=== PATIENT | male | born 1970 | race African-American/Black ===

== ENCOUNTER 2016-11-26 19:32 | Emergency (ER) | payer MEDICARE, MEDICAID ==
[~2016-11-26] VITALS: Ht 185.4 cm; Wt 66.2 kg
[2016-11-26] MEDS ORDERED: ONDANSETRON 4 MG TAB.RAPDIS ONE (23:56)
[2016-11-27] MEDS ORDERED: ONDANSETRON 4 MG TAB.RAPDIS PO ONE
[2016-11-27 00:24] VITALS: BP 122/74
== END 2016-11-27 00:25 | disposition home or self-care (01) ==
LOC: ER 19:40
DX: R11.2 Nausea with vomiting, unspecified (principal)
CPT/HCPCS: 99283; A4606; Q0162; Z7610

== ENCOUNTER 2017-05-12 15:32 | Emergency (ER) | payer MEDICARE, MEDICAID ==
[~2017-05-12] VITALS: Ht 185.4 cm; Wt 78.0 kg
--- NOTE | 2017-05-12 16:05 | NUR ---
PT BIB C/O CHILLS AND SHAKING X1 DAY. REPORTS SWEATING BUT SKIN APPEARS WARM NONDIAPHORETIC ON EXAM. RESP ENEN UNLABORED. DENIES COUGH, CONGESTION, N/V/D. AMBULATORY IWTH STEADY GAIT. NAD NOTED. PT APPEARS SOMEWHAT ANXIOUS AND STATES "THEY THOUGHT I WAS HAVING A HEART ATTACK". DENIES CP. IN ER BED 10.
[2017-05-12 18:16] LABS: APPEARANCE,URINE Clear (CLEAR); BILIRUBIN,URINE Negative (NEGATIVE); BLOOD, URINE Negative Ery/uL (NEGATIVE); COLOR,URINE Yellow (YELLOW); KETONES,URINE Negative (NEGATIVE); LEUKOCYTE ESTERASE ,URINE Negative (NEGATIVE); NITRITE, URINE Negative (NEGATIVE); PH,URINE 7.5 (5.0-8.0); PROTEIN,URINE Negative (NEGATIVE); UGLUCOSE Negative (NEGATIVE); UROBILINOGEN,URINE 0.2 EU/dL (0.2)
--- NOTE | 2017-05-12 18:29 | NUR ---
Patient discharged to home in stable condition. Written and verbal after care instructions given. Patient verbalizes understanding of instruction. AMBULATORY WITH STEADY GAIT.
[2017-05-12 18:30] VITALS: BP 140/89
== END 2017-05-12 18:32 | disposition home or self-care (01) ==
LOC: ER 15:33
DX: R68.83 Chills (without fever) (principal)
CPT/HCPCS: 81000-TC; A4606; Z7610

== ENCOUNTER 2017-12-20 16:19 | Emergency (ER) | payer MEDICARE, MEDICAID ==
[~2017-12-20] VITALS: Ht 182.9 cm; Wt 63.5 kg
[2017-12-20 16:53] VITALS: BP 152/97
== END 2017-12-20 17:34 | disposition home or self-care (01) ==
LOC: ER 16:21
DX: R13.10 Dysphagia, unspecified (principal); F10.10 Alcohol abuse, uncomplicated
CPT/HCPCS: A4606; Z7502; Z7610

== ENCOUNTER 2017-12-22 11:37 | Inpatient (IN) | payer MEDICARE, MEDICAID ==
[~2017-12-22] VITALS: Ht 185.4 cm; Wt 66.7 kg
--- NOTE | 2017-12-22 12:00 | NUR ---
PT EDI FROM HOME TO ER BED 16. PT C/O NEAR SYNCOPE, UNABLE TO EAT FOR DAYS. PT APPEARS ANXIOUS. GOWNED ANDPLACED ON MONITOR. STABLWE VITALS. AWAITING MD LOO.
--- NOTE | 2017-12-22 12:49 | NUR ---
DR ORTIZ AT BEDSIDE FOR EVAL.
[2017-12-22] MEDS ORDERED: IV NS 0.9% 1,000 ML BAG IV ONE (13:00)
[2017-12-22 13:14] LABS: BASOPHILS % (AUTO) 0.7 % (0.0-2.0); EOSINOPHILS % (AUTO) 0.5 % (0.0-6.0); HEMATOCRIT 49 % (39-51); HEMOGLOBIN 16.8 g/dL (13.5-17.5); LYMPHOCYTES # (AUTO) 0.7 /CMM (0.8-4.8); LYMPHOCYTES % (AUTO) 13.7 % (20.0-44.0); MEAN CORPUSCULAR HEMOGLOBIN 30 PG (26.0-33.0); MEAN CORPUSCULAR HGB CONC 34 g/dl (31.0-36.0); MEAN CORPUSCULAR VOLUME 86 fL (80-96); MONOCYTES # (AUTO) 0.5 /CMM (0.1-1.30); NEUTROPHILS # (AUTO) 4.2 /CMM (1.8-8.9); NEUTROPHILS % (AUTO) 76.1 % (43.0-81.0); PLATELET COUNT (AUTO) 200 /CMM (150-450); RDW COEFFICIENT OF VARIATION 11.7 (11.5-15.0); RED BLOOD CELL COUNT(AUTO) 5.67 MIL/uL (4.5-6.0); WHITE BLOOD COUNT (AUTO) 5.4 K/uL (4.3-11.0)
[2017-12-22 13:23] LABS: CALCIUM, SERUM 9.5 mg/dL (8.5-10.1); CARBON DIOXIDE 28 mmol/L (21-32); CHLORIDE 101 mmol/L (98-107); GLUCOSE 113 mg/dL (74-106); POTASSIUM 3.7 mmol/L (3.5-5.1); SODIUM SERUM 137 mmol/L (136-145); UREA NITROGEN, BLOOD 7 mg/dL (7-18)
[2017-12-22 13:32] LABS: TROPONIN I < 0.017 ng/mL (0.00-0.056)
[2017-12-22] MEDS ORDERED: ONDANSETRON HCL/PF 4 MG/2 ML VIAL IVP PRN (14:00)
[2017-12-22] MEDS ORDERED: MAGNESIUM HYDROXIDE 30 ML UDC PO PRN (14:00)
[2017-12-22] MEDS ORDERED: ZOLPIDEM TARTRATE 5 MG TABLET PO PRN (14:00)
[2017-12-22] MEDS ORDERED: MAG HYDROX/AL HYDROX/SIMETH 30 ML UDC PO PRN (14:00)
[2017-12-22] MEDS ORDERED: ACETAMINOPHEN 325 MG TABLET PO PRN (14:00)
[2017-12-22] MEDS ORDERED: Z GUARD REMEDY 2 OZ OINT TP PRN (14:00)
[2017-12-22] MEDS ORDERED: HYDROCODONE/APAP 5/325MG 1 EACH TABLET PO PRN (14:00)
--- NOTE | 2017-12-22 14:14 | NUR ---
REPORT GIVEN TO ELIZABETH. PT AWAITING TRANSFER TO FLOOR.
[2017-12-22] MEDS ORDERED: DIATR MEGLU/DIATRIZOATE SODIUM 120 ML BOTTLE (GASTROGRAPHIN) ONE ×2 (14:15→14:32)
[2017-12-22] MEDS ORDERED: BARIUM SULFATE 98% 135 ML SUSP.RECON PO ONE (14:37)
[2017-12-22 16:00] VITALS: BP 148/87
--- NOTE | 2017-12-22 16:00 | NUR ---
MS RN NOTES ADMITTED 47 YEAR OLD, MALE, ADMITTED FROM ER/RADIOLOGY S/P CT OF THE ABDOMEN. PATIENT ARRIVED VIA GURNEY, AWAKE, ALERT AND ORIENTED. ABLE TO MAKE NEEDS KNOWN AND FOLLOW SIMPLE INSTRUCTIONS. PATIENT ARRIVED AT UNIT 1530. PATIENT DENIES ANY PAIN OR DISCOMFORT, NO SOB OR CONGESTION NOTED. IV SITE ON LEFT AC, INTACT AND PATENT, NO SWELLING OR DISCOLORATION NOTED. PATIENT ORIENTED AND INTRODUCED TO UNIT, FLOOR, STAFF. WILL CONTINUE TO MONITOR
--- NOTE | 2017-12-22 16:00 | NUR ---
MS RN NOTES PATIENT NOTED WITH INVOLUNTARY FACIAL MOVEMENTS, FREQUENT BLINKING/WINKING, GENERALIZED TREMORS. BS OBTAINED WITH RESULT ON 113. PATIENT DENIES ANY PAIN OR DISCOMFORT. NO CHANGES IN LOC NOTED. WILL CONTINUE TO MONITOR
--- NOTE | 2017-12-22 17:00 | NUR ---
MS RN NOTES PATIENT SEEN AND EXAMINED BY SHARRON CAMP NP 2 GI CONSULT. WITH NEW ORDERS FOR NPO AND ST EVAL 2 DYSPHAGIA, NPO UNTIL EVALUATED BY ST. PATIENT MADE AWARE AND VERBALIZED UNDERSTANDING. ALSO WITH NEW ORDERS FOR IV HYDRATION OF NS AT 75CC/HR. ORDER NOTED AND CARRIED OUT. IV HYDRATION INITIATED AND DRAINING WELL. WILL CONTINUE TO MONITOR
[2017-12-22] MEDS: IV NS 0.9% 1,000 ML IV PRN (17:38)
--- NOTE | 2017-12-22 18:00 | NUR ---
MS RN NOTES PATIENT'S INVOLUNTARY MOVEMENTS HAVE SUBSIDED, NO FURTHER CHANGES NOTED AT THIS TIME. WILL CONTINUE TO MONITOR
--- NOTE | 2017-12-22 19:22 | NUR ---
MS RN NOTES PATIENT AWAKE, ALERT, VERBALLY RESPONSIVE AND RESPONDS TO VERBAL AND TACTILE STIMULI. BREATHING EVEN AND UNLABORED. DENIES ANY PAIN OR DISCOMFORT. NO CHANGES IN LOC NOTED. CONTINUE WITH NPO STATUS, AWAITING ST EVALUATION. PATIENT KEPT CLEAN, DRY AND COMFORTABLE. BILATERAL UPPER SIDE RAILS UP AND LOCKED. BED LOCKED AND IN LOW POSITION. CALL LIGHT PLACED WITHIN EASY REACH. ENDORSED TO INCOMING SHIFT
--- NOTE | 2017-12-22 19:25 | NUR ---
RN OPENING NOTES PATIENT IN BED, ALERT AND ORIENTED X 4, NOTED WITH NO SOB, BREATHING EVEN AND UNLABORED, WITH NO C/O PAIN AND IS IN NO ACUTE DISTRESS. PATIENT RECEIVING IVF ORDERED VIA IV PERIPHERAL LINE ON LAC G#18. AT BEDSIDE, VERBALIZED THAT PATIENT HAS BEEN HAVING PANIC ATTACKS LATELY AND THEY WERE SCHEDULED TO HAVE A DOCTOR'S APPOINTMENT FOR THE PANIC ATTACKS. INSTRUCTED PATIENT TO RELAX AND TO PERFORM DEEP BREATHING. VERBALIZED UNDERSTANDING. ALL PATIENT'S NEEDS ATTENDED TO AT THIS TIME. CALL LIGHT PLACED WITHIN EASY REACH. WILL CONTINUE TO MONITOR.
[2017-12-22 20:00] VITALS: BP 146/91
--- NOTE | 2017-12-22 21:50 | NUR ---
RN NOTE PATIENT NOTED WITH CALLING FOR HELP MULTIPLE TIMES, PER PATIENT, HE IS UNCOMFORTABLE, ALL NEEDS ADDRESSED EACH TIME BUT STILL FEELS ANXIOUS, VERBALIZED THAT HE MIGHT NEED SOMETHING FOR ANXIETY. PAGED NURSE CARE MANAGER MD. AWAITING FOR CALL BACK.
--- NOTE | 2017-12-22 22:20 | NUR ---
RN NOTE RECEIVED ORDER FROM DR. LEBLANC FOR ATIVAN IV PRN. ALL ORDERS NOTED AND CARRIED OUT. INFORMED PATIENT AND AGREES WITH PLAN OF CARE.
[2017-12-22] MEDS ORDERED: LORAZEPAM INJ 2 MG/ML VIAL ONE (22:26)
[2017-12-22] MEDS: LORAZEPAM INJ 2 MG/ML VIAL IV PRN (22:36)
[2017-12-23] MEDS ORDERED: PANTOPRAZOLE 40 MG VIAL IV SCH (02:00)
[2017-12-23 04:00] VITALS: BP 126/89
[2017-12-23] MEDS: IV NS 0.9% 1,000 ML IV PRN (06:54)
--- NOTE | 2017-12-23 07:00 | NUR ---
RN NOTES PATIENT RESTING IN BED, NONLABORED BREATHING NOTED ON ROOM AIR. NO SIGNS OF DISTRESS, PATIENT DENIES PAIN. IV SITE PATENT AND INTACT. BED IN LOWEST LOCKED POSITION. CALL LIGHT WITHIN REACH. WILL CONTINUE TO MONITOR/ PATIENT SINUS RHYTHM ON TELE MONITOR 70
--- NOTE | 2017-12-23 07:25 | NUR ---
RN CLOSING NOTE PATIENT IN BED, ASLEEP BUT EASILY AROUSABLE, CALM, NO SOB NOTED, BREATHING EVEN AND UNLABORED, DENIES PAIN, IN NO ACUTE DISTRESS. CONTINUES TO RECEIVE IVF ORDERED VIA PERIPHERAL LINE ON LAC GT#18. ALL PATIENT'S NEEDS ATTENDED TO. BED IN LOW POSITION AND LOCKED IN PLACE. PLACED CALL LIGHT WITHIN EASY REACH. WILL ENDORSE TO AM SHIFT NURSE FOR CONTINUITY OF CARE.
[2017-12-23 08:00] VITALS: BP 140/86
[2017-12-23 08:18] LABS: BASOPHILS % (AUTO) 0.2 % (0.0-2.0); EOSINOPHILS % (AUTO) 0.8 % (0.0-6.0); HEMATOCRIT 43 % (39-51); HEMOGLOBIN 14.9 g/dL (13.5-17.5); LYMPHOCYTES # (AUTO) 0.9 /CMM (0.8-4.8); LYMPHOCYTES % (AUTO) 16.3 % (20.0-44.0); MEAN CORPUSCULAR HEMOGLOBIN 31 PG (26.0-33.0); MEAN CORPUSCULAR HGB CONC 35 g/dl (31.0-36.0); MEAN CORPUSCULAR VOLUME 88 fL (80-96); MONOCYTES # (AUTO) 0.6 /CMM (0.1-1.30); NEUTROPHILS # (AUTO) 4.2 /CMM (1.8-8.9); NEUTROPHILS % (AUTO) 71.7 % (43.0-81.0); PLATELET COUNT (AUTO) 170 /CMM (150-450); RDW COEFFICIENT OF VARIATION 12.6 (11.5-15.0); RED BLOOD CELL COUNT(AUTO) 4.84 MIL/uL (4.5-6.0); WHITE BLOOD COUNT (AUTO) 5.8 K/uL (4.3-11.0)
[2017-12-23 08:39] LABS: THYROID STIMULATING HORMONE 1.375 uIU/mL (0.358-3.74)
[2017-12-23 08:41] LABS: CALCIUM, SERUM 8.2 mg/dL (8.5-10.1); CREATININE 0.8 mg/dL (0.6-1.3); MAGNESIUM 1.8 mg/dL (1.8-2.4); PHOSPHORUS 3.4 mg/dL (2.5-4.9); POTASSIUM 4.1 mmol/L (3.5-5.1)
[2017-12-23] MEDS: PANTOPRAZOLE 40 MG VIAL IV SCH (09:18)
[2017-12-23 12:00] VITALS: BP 126/72
[2017-12-23 16:00] VITALS: BP 123/83
[2017-12-23 17:28] VITALS: BP_SYST 124; BP_SYST 128; BP_SYST 131; BP_DIAS 78; BP_DIAS 82; BP_DIAS 84
--- NOTE | 2017-12-23 19:20 | NUR ---
RN NOTES PATIENT RESTING IN BED, NONLABORED BREATHING NOTED ON ROOM AIR. NO SIGNS OF DISTRESS, PATIENT DENIES PAIN. IV SITE PATENT AND INTACT. BED IN LOWEST LOCKED POSITION. CALL LIGHT WITHIN REACH. PATIENT SINUS RHYTHM ON TELE MONITOR, PATIENT ENCOURAGED TO TURN AND REPOSITION EVERY 2 HOURS. PATIENT KEPT CLEAN AND DRY. ENDORSED TO NEXT SHIFT
--- NOTE | 2017-12-23 19:30 | NUR ---
TELE/RN NOTES RECEIVED PT. SITTING UP IN BED. AWAKE, ALERT AND ORIENTED X3. BREATHING EVEN AND UNLABORED ON ROOM AIR. NO SOB, RESPIRATORY DISTRESS OR COMPLAINTS OF PAIN NOTED AT THIS TIME. PT. WITH EXTERNAL SURGERY AID PRESENT AND INTACT. CURRENT RHYTHM = SINUS RHYTHM HR 78. PT. WITH LEFT AC 18 GAUGE PERIPHERAL IV PRESENT, PATENT AND INTACT ADMINISTERING TO PT. NS @ 75 ML/HR. PER DAYSHIFT NURSE PT. WILL BE NPO AT MIDNIGHT PENDING EGD TOMORROW. PER DAYSHIFT NURSE CONSENT IS SIGNED AND PLACED IN CHART. PT. EDUCATED ABOUT BEING NPO AFTER MIDNIGHT. BED LOCKED AND IN LOWEST POSITION, SIDE RAILS UP X2, CALL LIGHT WITHIN REACH, WILL CONTINUE TO MONITOR.
--- NOTE | 2017-12-23 19:42 | NUR ---
RN NOTES: PATIENT AGREED SIGNED CONSENT FOR EGD, ANESTHESIA, AND BLOOD TRANSFUSION. BENEFITS AND RISKS EXPLAINED TO PATIENT. PATIENT EDUCATED TO BE NPO POST MIDNIGHT. EGD TO BE DONE TOMORROW,SPOKE WITH SHARRON Powers NP REGARDING PATIENT'S TOLERANCE OF PUREED DIET TODAY
[2017-12-23 20:00] VITALS: BP 126/88
[2017-12-24] VITALS: BP 130/83
[2017-12-24 04:00] VITALS: BP_SYST 115; BP_SYST 119; BP_DIAS 77; BP_DIAS 79
[2017-12-24] MEDS: IV NS 0.9% 1,000 ML IV PRN (06:18)
--- NOTE | 2017-12-24 06:31 | NUR ---
TELE/RN NOTES PT. IS LYING IN BED RESTING. BREATHING EVEN AND UNLABORED ON ROOM AIR. NO SOB, RESPIRATORY DISTRESS OR COMPLAINTS OF PAIN NOTED AT THIS TIME. PT. WITH LEFT AC 18 GAUGE PERIPHERAL IV PRESENT, PATENT AND INTACT ADMINISTERING TO PT. NS @ 75 ML/HR. PT. HAS BEEN NPO SINCE MIDNIGHT PENDING EGD TODAY. CONSENT IS SIGNED AND PLACED IN CHART. ALL PT. NEEDS MET. BED LOCKED AND IN LOWEST POSITION, SIDE RAILS UP X2, CALL LIGHT WITHIN REACH, WILL ENDORSE TO DAYSHIFT NURSE FOR CONTINUITY OF CARE.
--- NOTE | 2017-12-24 07:00 | NUR ---
RN NOTES PATIENT RESTING IN BED, NONLABORED BREATHING NOTED ON ROOM AIR. NO SIGNS OF DISTRESS, PATIENT DENIES PAIN. IV SITE PATENT AND INTACT. BED IN LOWEST LOCKED POSITION. CALL LIGHT WITHIN REACH. WILL CONTINUE TO MONITOR PATIENT SINUS RHYTHM ON TELE MONITOR WITH HEART RATE IN 70S
[2017-12-24 08:00] VITALS: BP 127/87
--- NOTE | 2017-12-24 09:15 | NUR ---
RN NOTES: PATIENT STATING THAT HE IS FEELING ANXIOUS DUE TO PROCEDURE HAPPENING TODAY. PATIENT ENCOURAGED TO VERBALIZE FEELINGS. VS WNL. NONLABORED BREATHING ON ROOM AIR. NO TACHYCARDIA NOTED.ATIVAN ADMINISTERED. WILL CONTINUE TO MONITOR
[2017-12-24] MEDS: LORAZEPAM INJ 2 MG/ML VIAL IV PRN (09:17)
--- NOTE | 2017-12-24 09:45 | NUR ---
RN NOTES PATIENT STATING THAT HE FEELS LESS ANXIOUS AFTER LORAZEPAM ADMINISTRATION, DENYING PAIN, VS WNL. NO ECG CHANGES. WILL CONTINUE TO MONITOR PATIENT ENCOURAGED TO EXPRESS HIS FEELINGS PATIENT REFUSING PROTONIX AT THE MOMENT
[2017-12-24] MEDS: PANTOPRAZOLE 40 MG VIAL IV SCH (10:19)
[2017-12-24 11:44] VITALS: BP 133/93
--- NOTE | 2017-12-24 11:46 | NUR ---
RN NOTES PATIENT CAME BACK FROM EGD, NO SIGNS OF DISTRESS, PATIENT STABLE ON ROOM AIR. VS WNL, DENIES PAIN. WILL CONTINUE TO MONITOR DR ORDERED TO RESUME PREVIOUS ORDERS AND DIET
[2017-12-24 12:11] VITALS: BP 123/85
--- NOTE | 2017-12-24 12:45 | NUR ---
RN NOTES: ORDERED PROTONIX, 40 MG, PO DAILY
[2017-12-24] MEDS ORDERED: PANT40TA2 PO (14:17)
[2017-12-24 16:00] VITALS: BP 126/84
--- NOTE | 2017-12-24 19:55 | NUR ---
RN NOTES: PATIENT DISCHARGED HOME PER DR HOFFMAN'S ORDERS. PATIENT AOX3. VS WNL. NO SIGNS OF DISTRESS NOTED. NO FACIAL GRIMACING NOTED. BREATHING NONLABORED. PATIENT DENIES ANXIETY. PATIENT DENIES PAIN. PATIENT STABLE SINCE EGD PROCEDURE TODAY. DISCUSSED WITH PATIENT AND GIRLFRIEND THE IMPORTANCE OF FOLLOWING UP WITH DR PENDLETON FOR THE EGD RESULTS. BOTH VERBALIZED UNDERSTANDING. DR PENDLETON'S OFFICE'S CONTACT NUMBER PROVIDED TO PATIENT. PATIENT CONTINUED WITH PUREED DIET TODAY, TOLERATED IT VERY WELL. NO NAUSEA OR VOMITTING NOTED. NO COUGHING OR DROOLING UPON SWALLOWING. PATIENT ALSO AMBULATED AROUND THE UNIT WITH A WALKER, ALSO ABLE TO AMBULATE FOR 200 FEET WITHOUT IT WITH A STEADY GATE. A WALKER WAS ORDERED PER PATIENT'S REQUEST TO BE USED AT HOME IF HE FEELS WEAK AGAIN. THROUGHOUT AMBULATION, PATIENT DENIED DIZZINESS, BLOOD PRESSURE SPO2 WELL HEART RATE WERE WNL. IV SITE TAKEN OUT PER JENN SANCHEZ. EXISTCARE INSTRUCTIONS DISCUSSED AT LENGTH WITH PATIENT AND DAMIÁN, BOTH VERBALIZED UNDERSTANDING. DISCUSSED DR HOFFMAN'S ORDER OF ADVANCING THE DIET TOLERATED AND DISCUSSED FOOD OPTIONS AND CHOICES WITH PATIENT, VERBALIZED UNDERSTANDING AND STATED THAT HE IS COMFORTABLE WITH PUREED DIET AT THE MOMENT. ALL VALUABLES RETURNED TO PATIENT. PATIENT REFUSED VACCINES, DISCUSSED BENEFITS AND RISKS AT LENGTH. HOWEVER, HE IS STATED THAT HE WISHES TO FOLLOW UP WITH PRIMARY HEALTH CARE PROVIDER FIRST. PATIENT ACCOMPANIED BY WOOD LEE TO PRIVATE CAR, LEFT WITH GIRLFRIEND
[2017-12-25] MEDS ORDERED: PANTOPRAZOLE 40 MG TABLET.DR PO SCH (09:00)
== END 2017-12-24 19:00 | disposition home or self-care (01) | DRG 392 ==
LOC: ER 11:39 → MED 14:26 → TELE 12-23 02:22 → MED 12-24 09:35
PROC: 0DD68ZX Extraction of Stomach, Via Natural or Artificial Opening Endoscopic, Diagnostic (ICD-10-PCS; 2017-12-24)
PROC: 0DD58ZX Extraction of Esophagus, Via Natural or Artificial Opening Endoscopic, Diagnostic (ICD-10-PCS; principal; 2017-12-24 11:40)
DX: K29.70 Gastritis, unspecified, without bleeding (principal); R13.10 Dysphagia, unspecified; Z68.1 Body mass index [BMI] 19.9 or less, adult; E86.0 Dehydration; R55 Syncope and collapse; K22.8 Other specified diseases of esophagus; F12.90 Cannabis use, unspecified, uncomplicated; Z87.891 Personal history of nicotine dependence; R63.0 Anorexia; Z80.9 Family history of malignant neoplasm, unspecified
CPT/HCPCS: 36415; 71045-TC; 74246-TC; 80048-TC; 80061-TC; 80305; 83605-TC; 83735-TC; 84100-TC; 84443-TC; 84484-TC; 85025-TC; 92521; 93307-TC; A4606; C9113; J2060; J7030; Q9963; Z7610

== ENCOUNTER 2017-12-28 13:43 | Outpatient (CLI) | payer MEDICARE, MEDICAID ==
[~2017-12-28 13:43] MED LIST: PANT40TA2 PO
[2017-12-28 13:53] VITALS: BP 132/78
== END 2017-12-28 23:59 | disposition home or self-care (01) ==
LOC: MSC 13:43
PROVIDERS: ATTEND Internal Medicine
DX: R55 Syncope and collapse (principal); K29.70 Gastritis, unspecified, without bleeding; R63.0 Anorexia